=== PATIENT | male | born 1975 | race Caucasian/White ===

== ENCOUNTER 2019-03-08 21:09 | Emergency (ER) | payer SELFPAY ==
[~2019-03-08] VITALS: Ht 167.6 cm; Wt 78.0 kg
[2019-03-08 21:43] VITALS: BP 129/85
== END 2019-03-09 02:41 | disposition left against medical advice (07) ==
LOC: ER 21:09
DX: F10.129 Alcohol abuse with intoxication, unspecified (principal); Y90.9 Presence of alcohol in blood, level not specified